=== PATIENT | male | born 1950 | race Caucasian/White ===

== ENCOUNTER 2024-05-10 20:01 | Inpatient (IN) | payer MEDICARE, MEDICAID, OTHER ==
[~2024-05-10] VITALS: Ht 177.8 cm; Wt 73.5 kg
[2024-05-10 20:32] LABS: BASOPHILS # (AUTO) 0.1 K/uL (0.0-0.2); BASOPHILS % (AUTO) 1.1 % (0.0-2.0); EOSINOPHILS # (AUTO) 0.1 K/uL (0.0-0.7); EOSINOPHILS % (AUTO) 1.2 % (0.0-6.0); HEMATOCRIT 44 % (39-51); HEMOGLOBIN 14.8 g/dL (13.5-17.5); MEAN CORPUSCULAR HEMOGLOBIN 33 PG (26.0-33.0); MEAN CORPUSCULAR HGB CONC 34 g/dl (31.0-36.0); MEAN CORPUSCULAR VOLUME 99 fL (80-96); MONOCYTES # (AUTO) 0.7 K/uL (0.1-1.30); NEUTROPHILS # (AUTO) 4.7 K/uL (1.8-8.9); NEUTROPHILS % (AUTO) 62.7 % (43.0-81.0); PLATELET COUNT (AUTO) 196 K/uL (150-450); RED BLOOD CELL COUNT(AUTO) 4.43 MIL/uL (4.5-6.0); RED CELL DISTRIBUTION WIDTH 15.1 % (11.5-15.0); WHITE BLOOD COUNT (AUTO) 7.5 K/uL (4.3-11.0)
[2024-05-10 20:44] LABS: CARBON DIOXIDE 26 mmol/L (21-32); CHLORIDE 107 mmol/L (98-107); CREATININE 1.1 mg/dL (0.6-1.3); GLUCOSE 117 mg/dL (74-106); POTASSIUM 4.4 mmol/L (3.5-5.1); SODIUM SERUM 143 mmol/L (136-145); UREA NITROGEN, BLOOD 31 mg/dL (7-18)
[2024-05-10 21:06] LABS: ALANINE AMINOTRANSFERASE 32 U/L (12-78); ALBUMIN 3.9 g/dL (3.4-5.0); ALKALINE PHOSPHATASE 92 U/L (46-116); ASPARTATE AMINOTRANSFERASE 31 U/L (15-37); BILIRUBIN,DIRECT 0.2 mg/dL (0.0-0.2); BILIRUBIN,TOTAL 0.6 mg/dL (0.2-1.0); TOTAL PROTEIN, SERUM 7.6 g/dL (6.4-8.2)
[2024-05-10] MEDS ORDERED: MIDODRINE HCL (5MG) 5 MG TABLET ONE (21:08)
[2024-05-10] MEDS ORDERED: MECLIZINE HCL 25 MG TABLET ONE (21:09)
[2024-05-10] MEDS: MIDODRINE HCL (5MG) 5 MG TABLET PO STA (21:13)
[2024-05-10] MEDS: MECLIZINE HCL 12.5 MG TABLET PO ONE (21:13)
[2024-05-10] MEDS ORDERED: hydrALAZINE HCL IV 20 MG VIAL IV PRN (23:00)
[2024-05-10] MEDS ORDERED: MORPHINE SULFATE INJ 2 MG/ML DISP.SYRIN IV PRN (23:00)
[2024-05-10] MEDS ORDERED: ONDANSETRON HCL/PF 4 MG/2 ML VIAL IVP PRN (23:00)
[2024-05-10] MEDS ORDERED: DEXTROSE 50%-WATER 50 ML DISP.SYRIN IV PRN (23:30)
[2024-05-11 01:28] VITALS: BP 140/79; TEMP 97.7; O2SAT 96
[2024-05-11] MEDS: ACETAMINOPHEN 325 MG TABLET PO PRN (02:20)
[2024-05-11 04:00] VITALS: BP 116/69; TEMP 97.9; O2SAT 96
[2024-05-11] MEDS: BLOOD SUGAR DIAGNOSTIC 1 EACH STRIP IN SCH (06:30)
[2024-05-11] MEDS: INSULIN REGULAR, HUMAN 100 UNIT/ML 3 ML VIAL SQ PRN (06:30)
[2024-05-11 08:00] VITALS: BP 135/80; TEMP 97.8; O2SAT 96
[2024-05-11] MEDS: SACUBITRIL/VALSARTAN 24/26MG TABLET PO SCH (08:19)
[2024-05-11] MEDS: EZETIMIBE 10 MG TABLET PO SCH ×2 (08:19→09:39)
[2024-05-11] MEDS: CARVEDILOL 3.125 MG TABLET PO SCH (08:22)
[2024-05-11] MEDS ORDERED: LIDO700A30 TP (08:26)
[2024-05-11] MEDS ORDERED: FLUO60CR TP (08:26)
[2024-05-11] MEDS ORDERED: LOPE2TAB25 PO (08:26)
[2024-05-11] MEDS ORDERED: RIVA10TA PO (08:26)
[2024-05-11] MEDS ORDERED: EZET10TA15 PO (08:26)
[2024-05-11] MEDS ORDERED: SIME80TA15 PO (08:26)
[2024-05-11] MEDS ORDERED: CICL120S2 TP (08:26)
[2024-05-11] MEDS ORDERED: SODI45SP10 BNOSTRILS (08:26)
[2024-05-11] MEDS ORDERED: CETI10TA14 PO (08:26)
[2024-05-11] MEDS ORDERED: CARB30DR18 EACHEYE (08:26)
[2024-05-11] MEDS ORDERED: SACU1TAB PO (08:26)
[2024-05-11] MEDS ORDERED: CARV3.12 PO (08:26)
[2024-05-11] MEDS ORDERED: EMPA10TA PO (08:26)
[2024-05-11] MEDS ORDERED: KETO120S5 TP (08:26)
[2024-05-11] MEDS ORDERED: LIDO28.35 TP (08:26)
[2024-05-11] MEDS ORDERED: CHOL200059 PO (08:26)
[2024-05-11] MEDS ORDERED: PYRI100L TP (08:26)
[2024-05-11] MEDS ORDERED: ALBU8.5H8 IH (08:26)
[2024-05-11] MEDS ORDERED: AMMO385C4 TP (08:26)
[2024-05-11] MEDS ORDERED: L. A1TAB10 PO (08:26)
[2024-05-11] MEDS ORDERED: CALC60OI4 TP (08:26)
[2024-05-11] MEDS ORDERED: PREG50CA PO (08:26)
[2024-05-11] MEDS ORDERED: CLOB15CR4 TP (08:26)
[2024-05-11] MEDS ORDERED: ACET-2030 PO ×2 (08:26)
[2024-05-11] MEDS ORDERED: THIA100T88 PO (08:27)
[2024-05-11] MEDS ORDERED: TACR100O2 TP (08:27)
[2024-05-11] MEDS: PREGABALIN 25 MG CAPSULE PO SCH (08:28)
[2024-05-11 08:55] LABS: ALBUMIN 3.4 g/dL (3.4-5.0); BILIRUBIN,TOTAL 0.7 mg/dL (0.2-1.0); CALCIUM, SERUM 9.4 mg/dL (8.5-10.1); CREATININE 0.9 mg/dL (0.6-1.3); MAGNESIUM 2.2 mg/dL (1.8-2.4); PHOSPHORUS 4.4 mg/dL (2.5-4.9); POTASSIUM 3.7 mmol/L (3.5-5.1); TOTAL PROTEIN, SERUM 6.9 g/dL (6.4-8.2)
[2024-05-11] MEDS ORDERED: APIXABAN 5 MG TABLET PO SCH (09:00)
[2024-05-11] MEDS: EMPAGLIFLOZIN 10 MG TABLET PO SCH (09:03)
[2024-05-11] MEDS ORDERED: SALINE NASAL SPRAY 0.65% 1 BOTTLE BOTTLE NS PRN (09:30)
[2024-05-11] MEDS ORDERED: EMPAGLIFLOZIN 10 MG TABLET PO SCH (09:30)
[2024-05-11 09:34] LABS: BASOPHILS # (AUTO) 0.1 K/uL (0.0-0.2); BASOPHILS % (AUTO) 1.2 % (0.0-2.0); EOSINOPHILS # (AUTO) 0.1 K/uL (0.0-0.7); EOSINOPHILS % (AUTO) 2.2 % (0.0-6.0); HEMATOCRIT 43 % (39-51); HEMOGLOBIN 14.3 g/dL (13.5-17.5); LYMPHOCYTES % (AUTO) 31.5 % (20.0-44.0); MEAN CORPUSCULAR HEMOGLOBIN 33 PG (26.0-33.0); MEAN CORPUSCULAR HGB CONC 33 g/dl (31.0-36.0); MEAN CORPUSCULAR VOLUME 99 fL (80-96); MONOCYTES # (AUTO) 0.8 K/uL (0.1-1.30); MONOCYTES % (AUTO) 12.1 % (2.0-12.0); NEUTROPHILS # (AUTO) 3.4 K/uL (1.8-8.9); PLATELET COUNT (AUTO) 184 K/uL (150-450); RED BLOOD CELL COUNT(AUTO) 4.35 MIL/uL (4.5-6.0); RED CELL DISTRIBUTION WIDTH 14.7 % (11.5-15.0); WHITE BLOOD COUNT (AUTO) 6.4 K/uL (4.3-11.0)
[2024-05-11] MEDS: CLOBETASOL 0.05% CREAM 15 GM TUBE TP SCH ×2 (09:40→16:44)
[2024-05-11] MEDS ORDERED: ALBUTEROL FS 2.5 MG/3 ML VIAL.NEB NEB PRN (10:00)
[2024-05-11] MEDS: LIDOCAINE 5% (PATCH) 1 EA PATCH TP SCH (10:45)
[2024-05-11] MEDS: FLUOCINOLONE CREAM 0.01% TUBE TP SCH (10:46)
[2024-05-11 12:00] VITALS: BP 127/73; TEMP 97.5; O2SAT 96
[2024-05-11 16:00] VITALS: BP 116/71; TEMP 97.9; O2SAT 97
[2024-05-11] MEDS: RIVAROXABAN 10 MG TABLET PO SCH (16:42)
[2024-05-11] MEDS ORDERED: RIVAROXABAN 10 MG TABLET PO SCH (17:00)
[2024-05-11 20:00] VITALS: BP 97/62; TEMP 97.5; O2SAT 97
[2024-05-12] VITALS (7 sets, daily range): BP systolic 101–129; BP diastolic 58–81; TEMP 97.5–98.2; O2SAT 96–97
[2024-05-12 06:52] LABS: BASOPHILS # (AUTO) 0.1 K/uL (0.0-0.2); BASOPHILS % (AUTO) 0.9 % (0.0-2.0); EOSINOPHILS # (AUTO) 0.1 K/uL (0.0-0.7); EOSINOPHILS % (AUTO) 2.2 % (0.0-6.0); HEMATOCRIT 43 % (39-51); HEMOGLOBIN 14.9 g/dL (13.5-17.5); LYMPHOCYTES # (AUTO) 1.9 K/uL (0.8-4.8); LYMPHOCYTES % (AUTO) 28.3 % (20.0-44.0); MEAN CORPUSCULAR HEMOGLOBIN 34 PG (26.0-33.0); MEAN CORPUSCULAR HGB CONC 35 g/dl (31.0-36.0); MEAN CORPUSCULAR VOLUME 97 fL (80-96); MONOCYTES # (AUTO) 0.6 K/uL (0.1-1.30); MONOCYTES % (AUTO) 9.1 % (2.0-12.0); NEUTROPHILS % (AUTO) 59.5 % (43.0-81.0); PLATELET COUNT (AUTO) 180 K/uL (150-450); RED BLOOD CELL COUNT(AUTO) 4.42 MIL/uL (4.5-6.0); RED CELL DISTRIBUTION WIDTH 14.6 % (11.5-15.0); WHITE BLOOD COUNT (AUTO) 6.7 K/uL (4.3-11.0)
[2024-05-12 07:12] LABS: CALCIUM, SERUM 9.2 mg/dL (8.5-10.1); CREATININE 0.8 mg/dL (0.6-1.3); POTASSIUM 4.3 mmol/L (3.5-5.1)
[2024-05-12 12:27] LABS: THYROID STIMULATING HORMONE 3.99 uIU/mL (0.358-3.74)
[2024-05-12] MEDS: LOPERAMIDE HCL (2 MG CAP) 2 MG CAPSULE PO SCH (14:22)
[2024-05-12] MEDS ORDERED: PREGABALIN 25 MG CAPSULE PO SCH (17:00)
[2024-05-12] MEDS: SACUBITRIL/VALSARTAN 24/26MG TABLET PO SCH (17:05)
[2024-05-12] MEDS: ACETAMINOPHEN ES 500 MG TABLET PO PRN (18:16)
[2024-05-12] MEDS ORDERED: LOPERAMIDE HCL (2 MG CAP) 2 MG CAPSULE ONE (22:08)
[2024-05-13 00:25] VITALS: BP 106/79; TEMP 98.1; O2SAT 98
[2024-05-13 00:29] VITALS: BP_SYST 106; BP_SYST 111; BP_SYST 122; BP_DIAS 79; BP_DIAS 82; BP_DIAS 88; TEMP 98.1; O2SAT 98
[2024-05-13 04:00] VITALS: BP_SYST 118; BP_SYST 126; BP_DIAS 81; BP_DIAS 87; TEMP 98.1; O2SAT 97
[2024-05-13] MEDS ORDERED: LOPERAMIDE HCL (2 MG CAP) 2 MG CAPSULE ONE (05:22)
[2024-05-13 07:45] LABS: BASOPHILS % (AUTO) 0.7 % (0.0-2.0); EOSINOPHILS # (AUTO) 0.1 K/uL (0.0-0.7); EOSINOPHILS % (AUTO) 2.2 % (0.0-6.0); HEMATOCRIT 46 % (39-51); HEMOGLOBIN 15.3 g/dL (13.5-17.5); LYMPHOCYTES # (AUTO) 1.7 K/uL (0.8-4.8); LYMPHOCYTES % (AUTO) 30.4 % (20.0-44.0); MEAN CORPUSCULAR HEMOGLOBIN 33 PG (26.0-33.0); MEAN CORPUSCULAR HGB CONC 33 g/dl (31.0-36.0); MEAN CORPUSCULAR VOLUME 98 fL (80-96); MONOCYTES # (AUTO) 0.6 K/uL (0.1-1.30); NEUTROPHILS # (AUTO) 3.1 K/uL (1.8-8.9); NEUTROPHILS % (AUTO) 55.7 % (43.0-81.0); PLATELET COUNT (AUTO) 189 K/uL (150-450); RED BLOOD CELL COUNT(AUTO) 4.72 MIL/uL (4.5-6.0); RED CELL DISTRIBUTION WIDTH 14.5 % (11.5-15.0); WHITE BLOOD COUNT (AUTO) 5.6 K/uL (4.3-11.0)
[2024-05-13 07:51] LABS: CALCIUM, SERUM 9.5 mg/dL (8.5-10.1); POTASSIUM 4.6 mmol/L (3.5-5.1)
[2024-05-13 08:00] VITALS: BP_SYST 108; BP_SYST 118; BP_DIAS 69; BP_DIAS 87; TEMP 97.5; O2SAT 97
[2024-05-13] MEDS: DILTIAZEM HCL CD 240 MG PO SCH (09:11)
[2024-05-13] MEDS ORDERED: LOPERAMIDE HCL (2 MG CAP) 2 MG CAPSULE PO SCH (09:30)
[2024-05-13 12:00] VITALS: BP 92/60; TEMP 97.6; O2SAT 95
[2024-05-13 14:52] VITALS: BP_SYST 100; BP_SYST 92; BP_DIAS 60; BP_DIAS 62; TEMP 97.8; O2SAT 96
[2024-05-14 10:11] LABS: FOLIC ACID 12.8 ng/mL (>3.0)
== END 2024-05-13 14:48 | disposition home or self-care (01) | DRG 310 ==
LOC: ER 20:13 → TELE1 23:35
PROVIDERS: ADMIT Internal Medicine; ATTEND Internal Medicine
DX: I48.91 Unspecified atrial fibrillation (principal); R00.1 Bradycardia, unspecified; I11.0 Hypertensive heart disease with heart failure; I50.9 Heart failure, unspecified; E11.41 Type 2 diabetes mellitus with diabetic mononeuropathy; T44.7X5A Adverse effect of beta-adrenoreceptor antagonists, initial encounter; Y92.9 Unspecified place or not applicable; E11.42 Type 2 diabetes mellitus with diabetic polyneuropathy; E78.5 Hyperlipidemia, unspecified; F17.200 Nicotine dependence, unspecified, uncomplicated; Z88.8 Allergy status to other drugs, medicaments and biological substances; J44.9 Chronic obstructive pulmonary disease, unspecified; Z79.01 Long term (current) use of anticoagulants; Z79.4 Long term (current) use of insulin; Z71.6 Tobacco abuse counseling; Z79.84 Long term (current) use of oral hypoglycemic drugs; Z79.51 Long term (current) use of inhaled steroids
CPT/HCPCS: 36415; 70450-TC; 71045-TC; 80048-TC; 80053-TC; 80061-TC; 80076-TC; 82607-TC; 82962-TC; 83735-TC; 83880; 83921; 84100-TC; 84425; 84443-TC; 84484-TC; 85025-TC; 93307-TC; 93880-TC; 93930-TC; 97116-TC; 97530-TC; G0378; J1815; J8597